=== PATIENT | male | born 1960 | race Caucasian/White ===

== ENCOUNTER 2020-11-24 09:39 | Day surgery (SDC) | payer MEDICARE, OTHER ==
[2020-11-23 14:07] VITALS: BMI 36.0
[~2020-11-24 09:39] MED LIST: DEXAMETHASONE SOD PHOSPHATE 4 MG/ML 1 ML VIAL IV ONE; LACTATED RINGERS 1,000 ML IV SCH; LIDOCAINE 1% (10MG/ML) FOR IV START INTRADERMA PRN; ONDANSETRON 4 MG/2 ML VIAL IVP ONE; Pre Op ABX Message 1 EACH MISC MISCELLANE ONE; SCOPOLAMINE 1.5MG/72HR PATCH TRANSDERM ONE
[2020-11-24 10:17] LABS: Glucose,Whole Blood 338 mg/dL (75-99)
[2020-11-24] MEDS ORDERED: INSULIN ASPART (NovoLOG) 100 UNIT/ML VIAL SQ ONE (10:28)
[2020-11-24] MEDS ORDERED: MIDAZOLAM 2 MG/2 ML VIAL IVP ONE ×2 (10:32→10:40)
[2020-11-24] MEDS ORDERED: LIDOCAINE 1% INJ 10MG/ML (20 ML MDV) ONE ×2 (11:04)
[2020-11-24] MEDS ORDERED: ROPIVACAINE 5 MG/ML 30 ML VIAL ONE (11:04)
[2020-11-24] MEDS ORDERED: fentaNYL (PF) 50 MCG/ML 2 ML AMP ONE ×2 (11:04)
[2020-11-24] MEDS ORDERED: DEXAMETHASONE SOD PHOSPHATE 4 MG/ML 1 ML VIAL ONE (11:04)
[2020-11-24] MEDS ORDERED: MIDAZOLAM 2 MG/2 ML VIAL ONE ×2 (11:04)
[2020-11-24] MEDS ORDERED: SUCCINYLCHOLINE CHLORIDE 100 MG/5 ML SYR IV ONE ×2 (11:04)
[2020-11-24] MEDS ORDERED: PROPOFOL 10 MG/ML 20 ML VIAL IV ONE ×2 (11:04)
[2020-11-24 11:07] LABS: Glucose,Whole Blood 281 mg/dL (75-99)
[2020-11-24] MEDS ORDERED: ceFAZolin 1,000 MG VIAL IVPB ONE (11:09)
[2020-11-24 12:30] VITALS: TEMP 97.2
[2020-11-24] MEDS ORDERED: ONDANSETRON 4 MG/2 ML VIAL IVP ONE (12:30)
[2020-11-24] MEDS: HYDROmorphone 0.5 MG/0.5 ML SYRINGE IVP PRN ×3 (12:43→13:17)
[2020-11-24] MEDS ORDERED: diphenhydrAMINE 50 MG/ML 1 ML VIAL IVP ONE (12:50)
[2020-11-24] MEDS ORDERED: SODIUM CHLORIDE 0.9% 1,000 ML IV ONE (12:55)
[2020-11-24 13:54] VITALS: RESP 18
[2020-11-24] MEDS ORDERED: oxyCODONE-APAP 5-325MG 1 EACH TAB ONE (14:03)
[2020-11-24] MEDS ORDERED: oxyCODONE-APAP 5-325MG 1 EACH TAB PO ONE (14:04)
[2020-11-24 14:23] VITALS: BP 132/65; PULSE 65
--- NOTE | 2020-11-24 23:01 | OP ---
OPERATIVE REPORT DATE OF PROCEDURE: 11/24/2020. SURGEON: Brandon Serrato M.D. LICENSED LAND SURVEYOR: Zachary VENTURA. PREOPERATIVE DIAGNOSES: 1. Right shoulder rotator cuff tear. 2. Right shoulder superior labral tear. 3. Right shoulder bicipital tenosynovitis. 4. Right shoulder subacromial impingement. POSTOP DIAGNOSES: 1. Right shoulder mild fraying articular surface of the supraspinatus. Less than 10% articular surface tearing of the supraspinatus. 2. Right shoulder type 2 displaced superior labral tear. 3. Right shoulder partial tearing of the intra-articular portion of long head of the biceps tendon. 4. Right shoulder type 3 anterolateral acromial spur. PROCEDURE PERFORMED: 1. Right shoulder arthroscopic biceps tenotomy. 2. Right shoulder arthroscopic anterior superior and posterior labral debridement. 3. Right shoulder arthroscopic acromioplasty. ANESTHESIA: General endotracheal. ESTIMATED BLOOD LOSS: Was minimal. TOURNIQUET: None. DRAINS: None. COMPLICATIONS: None apparent. DISPOSITION: Postanesthesia care unit. Examination under anesthesia, right shoulder elevation 160 degrees, external rotation at the side is 40 degrees. External rotation 90 degrees abduction was 90 degrees, internal rotation at 90 degrees abduction was 60 degrees, sulcus less than 1 cm, anterior translation glenoid face, posterior translation glenoid face. ARTHROSCOPIC FINDINGS: Right shoulder: 1. Superior labrum, type 2 displaced superior labral tear tearing both anterior post of the biceps anchor. The biceps anchor was not intact. There was also partial tearing of the intra-articular portion of long head of the biceps tendon. 2. Anterior inferior labrum normal glenoid labral attached. 3. Significant tearing of the posterior labrum from the 9 o'clock position to 12 o'clock position on the glenoid face. 4. Humeral head cartilage normal. 5. Rotator cuff mild fraying of the anterior aspect of the articular surface of the supraspinatus likely 10% or less of the tendon. The remaining intra-articular aspect of the rotator cuff was intact without any evidence of tearing. The bursal surface of the rotator cuff was pristine without any evidence of tearing. 6. Glenoid face cartilage was normal. 7. Subacromial space significant fraying of the undersurface of the coracoacromial ligament with a type 3 anterolateral acromial spur. INDICATIONS: Stevo is a 60-year-old male with right shoulder pain. He has noted weakness as well as significant pain in the shoulder. He has been through fairly significant course of nonoperative management up to this point. Physical examination and MRI reveal tearing of the superior labrum as well as the suggestion of a rotator cuff tear. At this point in time, he feels that he has failed nonoperative treatment. He would like to proceed with operative intervention. A long discussion was held with the patient with regard to treatment options. The risks of the procedure were all discussed with him in detail. These risks included, but were not limited to risk of infection, nerve damage, bleeding, pain, and a small risk of deep vein thrombosis which could lead to fatal pulmonary embolism. Further risks include lack of healing of the rotator cuff and the possibility for biceps contour change with a biceps tenotomy. The patient understands the operation as well as the fact that there is no guarantee of improvement of his symptoms. Appropriate informed consent was obtained. DESCRIPTION OF PROCEDURE: The was patient identified in preop holding area. Surgical site was marked by both the patient and myself. Given 2 g of Ancef IV for prophylactic purposes. He was then transferred to the operative suite. He was placed supine on the operative table. The patient was then intubated endotracheally and received general anesthesia throughout the operative procedure. Examination under anesthesia was then performed and the findings noted above. The patient was then placed into the beach chair position well-padded in preparation for surgery. Great care was taken to ensure the cervical spine is in neutral alignment well-padded and maintained that way throughout the operative procedure. Great care was also taken to ensure that his legs were appropriately padded as well. The patient's right upper extremity is then prepped, draped in usual sterile fashion. Standard surgical pause undertaken to ensure that appropriate preop antibiotics were given that we were operating the correct site. All staff were in agreement we proceeded. The acromion as well as the AC joint coracoid marked surgical pen. The skin of the anticipated portal sites were also marked surgical pen. The skin of the anticipated port sites were then injected with 0.25% Marcaine with epinephrine. I then proceeded to make a posterior portal. A 30 degree arthroscope through the glenohumeral joint through this portal. The arthroscopic pump pressure was set at 40 mmHg and maintained at that level throughout the entire case. Next utilizing an 18-gauge spinal needle to topically localize the placement, the anterior superior portal was made. This was made just underneath the biceps tendon high on the rotator interval for small 5.75 mm cannula was then placed. The outflow was then done through this cannula. Diagnostic arthroscopy of shoulder was then performed. The findings noted above. Great care was taken to probe superior labral complex as well as the biceps anchor. The biceps anchor was not firmly attached. It was readily displaced. Significant tearing of the superior labrum. This was anterior and posterior to the biceps anchor. The intra-articular portion of long head biceps tendon did have partial tearing as well. At this point, I proceeded with a biceps tenotomy. The biceps was tenotomized. There was attachment on the supraglenoid tubercle. This was done utilizing the [employer] wand. I then proceeded to debride the torn loose tissue of the superior labrum. This was debrided anteriorly superiorly and posteriorly back to stable tissue. I then inspect the rotator cuff from intra-articular. There was some mild fraying of the anterior aspect of the articular surface of the supraspinatus. This was very gently debrided. The rotator cuff otherwise looked pristine in this area. There was no other evidence of tearing of the rotator cuff. At this point, no further work was deemed necessary from intra-articular. The arthroscope was removed from the glenohumeral joint and utilizing the same posterior skin incision, was placed in the subacromial space. Next utilizing an 18-gauge spinal needle to topically localize placement, a lateral port was made under direct visualization. Subacromial bursectomy was then performed utilizing synovial shaver as well as the Arthro[employer] wand. There was significant fraying of the undersurface of the coracoacromial ligament. This was then taken down utilizing an Arthro[employer] wand. This exposed an underlying type 3 anterolateral acromial spur. I then proceed with an acromioplasty. Utilizing synovial shaver in a marianela-type fashion, the acromioplasty was completed. When the acromioplasty was complete, the arthroscope was placed in the lateral portal and shaver placed posteriorly to ensure there was adequate and coplanar with posterior aspect of the acromion. I then moved the arthroscope to the lateral portal. I then examined the rotator cuff with the arthroscope in the lateral portal. The shoulder was taken through a full range of motion. There was no evidence of tearing of the bursal surface of the rotator cuff. At this point in time, no further work was deemed necessary. The shoulder was thoroughly irrigated and drained with an outflow cannula. The scope was removed from the shoulder. The arthroscopic portals were then closed with 3-0 nylon interrupted suture. Sterile compressive dressings were applied. The patient's right upper extremity was placed into a standard sling. All sponge, needles counts were deemed correct prior to closure. The patient tolerated the procedure without apparent complication. He was transferred recovery room in stable condition. MMODL / IJN: [id number] /
== END 2020-11-24 14:44 | disposition home or self-care (01) ==
LOC: OR 09:39
PROVIDERS: ATTEND Orthopaedic Surgery Sports Medicine
DX: M75.111 Incomplete rotator cuff tear or rupture of right shoulder, not specified as traumatic (principal); S43.431A Superior glenoid labrum lesion of right shoulder, initial encounter; S46.111A Strain of muscle, fascia and tendon of long head of biceps, right arm, initial encounter; M75.21 Bicipital tendinitis, right shoulder; M75.41 Impingement syndrome of right shoulder; M75.81 Other shoulder lesions, right shoulder; M19.011 Primary osteoarthritis, right shoulder; I11.0 Hypertensive heart disease with heart failure; I50.9 Heart failure, unspecified; J44.9 Chronic obstructive pulmonary disease, unspecified; I48.91 Unspecified atrial fibrillation; H40.9 Unspecified glaucoma; E78.5 Hyperlipidemia, unspecified; G47.33 Obstructive sleep apnea (adult) (pediatric); F32.9 Major depressive disorder, single episode, unspecified; E11.9 Type 2 diabetes mellitus without complications; K21.9 Gastro-esophageal reflux disease without esophagitis; Z79.4 Long term (current) use of insulin; Z79.899 Other long term (current) drug therapy; Z90.49 Acquired absence of other specified parts of digestive tract; Z98.890 Other specified postprocedural states; Z91.030 Bee allergy status; Z91.013 Allergy to seafood; Z83.3 Family history of diabetes mellitus; Z82.49 Family history of ischemic heart disease and other diseases of the circulatory system; Z87.891 Personal history of nicotine dependence; Z79.82 Long term (current) use of aspirin; Z79.51 Long term (current) use of inhaled steroids
CPT/HCPCS: 29823; 29826; J2250; J1200; J1100; J2405; J0690; J2001; J3010; J2795; J0330; J2704; J1170